=== PATIENT | female | born 1940 | race Caucasian/White ===

== ENCOUNTER → 2017-06-06 | Outpatient (CLI) | payer OTHER | END | disposition home or self-care (01) | LOC: LAB SHORT 10:52 → PLD 10:52 | DX: D22.61 Melanocytic nevi of right upper limb, including shoulder (principal) | CPT/HCPCS: 88305 ==

== ENCOUNTER 2018-09-18 07:36 | Day surgery (SDC) | payer OTHER ==
[~2018-09-18] VITALS: Ht 167.6 cm; Wt 81.5 kg
[~2018-09-18 07:36] MED LIST: ASCO500; Avapro300 MG; CHOL10002; CIME400; Cvs Glucosamin1 EAC2; Lutein6 MG; MELA3; THERA1 EACH; TUMS500 MG; UNISOM25 MG; Vitamin A10000 UNIT; ZINC15
--- NOTE | 2018-09-18 09:55 | NUR ---
09/18/18 0955 Shakira Lowe INDIGO CARMINE WITH NACL, 7ML TOTAL USED FOR POLYP REMOVAL.
== END 2018-09-18 10:26 | disposition home or self-care (01) ==
LOC: ORSCSDS 07:36
PROVIDERS: Internal Medicine Gastroenterology
PROC: 3E0H8GC Introduction of Other Therapeutic Substance into Lower GI, Via Natural or Artificial Opening Endoscopic (ICD-10-PCS; principal; 2018-09-18 09:00)
PROC: 0DBK8ZX Excision of Ascending Colon, Via Natural or Artificial Opening Endoscopic, Diagnostic (ICD-10-PCS; principal; 2018-09-18 09:00)
PROC: 0DBN8ZX Excision of Sigmoid Colon, Via Natural or Artificial Opening Endoscopic, Diagnostic (ICD-10-PCS; principal; 2018-09-18 09:00)
DX: Z12.11 Encounter for screening for malignant neoplasm of colon (principal); Z80.0 Family history of malignant neoplasm of digestive organs; K57.30 Diverticulosis of large intestine without perforation or abscess without bleeding; D12.5 Benign neoplasm of sigmoid colon; D12.2 Benign neoplasm of ascending colon; I10 Essential (primary) hypertension; Z79.82 Long term (current) use of aspirin; G47.33 Obstructive sleep apnea (adult) (pediatric)
CPT/HCPCS: 88305; J0461; J2405; J2704; J7120

== ENCOUNTER → 2018-11-01 | Outpatient (CLI) | payer OTHER ==
[2018-11-06 13:07] LABS: M-SPIKE, % Not Observed % (Not Observed); PROTEIN,TOTAL,URINE 5.7 mg/dL (Not Estab.)
== END | disposition home or self-care (01) ==
LOC: LAB 08:56 → LAB SHORT 08:56 → LAB FUT 10-30 13:30
PROVIDERS: Internal Medicine
DX: Z00.01 Encounter for general adult medical examination with abnormal findings (principal)
CPT/HCPCS: 81050; 84166; 86335

== ENCOUNTER 2021-06-24 08:11 | Day surgery (SDC) | payer OTHER ==
[~2021-06-24] VITALS: Ht 167.6 cm; Wt 85.5 kg
== END 2021-06-24 10:49 | disposition home or self-care (01) ==
LOC: ORSCSDS 08:11
PROVIDERS: Internal Medicine Gastroenterology
PROC: 0DBK8ZX Excision of Ascending Colon, Via Natural or Artificial Opening Endoscopic, Diagnostic (ICD-10-PCS; principal; 2021-06-24 09:30)
DX: Z12.11 Encounter for screening for malignant neoplasm of colon (principal); Z86.010 Personal history of colon polyps; Z80.0 Family history of malignant neoplasm of digestive organs; D12.2 Benign neoplasm of ascending colon; K57.30 Diverticulosis of large intestine without perforation or abscess without bleeding; G47.30 Sleep apnea, unspecified; Z87.891 Personal history of nicotine dependence; E66.9 Obesity, unspecified; Z68.30 Body mass index [BMI] 30.0-30.9, adult; Z79.899 Other long term (current) drug therapy
CPT/HCPCS: 88305; J2704; J7120

== ENCOUNTER 2023-12-17 00:42 | Emergency (ER) | payer OTHER ==
[~2023-12-17] VITALS: Ht 160 cm; Wt 79.4 kg
[~2023-12-17 00:42] MED LIST changes: +AMLODIPINE BES2.5 MG PO; +Avapro300 MG PO; +CATAPRES0.1 MG PO; +CLIMARA1 EACH TOP
[2023-12-17] MEDS ORDERED: METO50ER PO (02:10)
[2023-12-17] MEDS ORDERED: ELIQUIS5 M3 PO (02:10)
[2023-12-17 02:15] LABS: Bun/Creatinine Ratio 22.5 (12.0-20.0); Calcium, Blood 8.9 mg/dL (8.5-10.1); Creatinine, Blood 0.76 mg/dL (0.40-1.00)
[2023-12-17 02:30] VITALS: BP 154/66
== END 2023-12-17 02:45 | disposition home or self-care (01) ==
LOC: ER 00:42
PROVIDERS: Emergency Medicine
DX: I16.0 Hypertensive urgency (principal); I10 Essential (primary) hypertension; Z79.899 Other long term (current) drug therapy
CPT/HCPCS: 80048; 99283

== ENCOUNTER 2024-03-26 12:13 | Emergency (ER) | payer OTHER ==
[~2024-03-26] VITALS: Ht 167.6 cm; Wt 81.7 kg
[~2024-03-26 12:13] MED LIST changes: +ELIQUIS5 M3 PO; +METO50ER PO
[2024-03-26 12:33] VITALS: BP 172/69
[2024-03-26 13:36] LABS: BASOPHILS ABSOLUTE AUTO 0.06 K/mm3 (0.00-0.23); BASOPHILS PERCENT AUTO 1 % (0-2); EOSINOPHILS ABSOLUTE AUTO 0.32 K/mm3 (0.00-0.68); EOSINOPHILS PERCENT AUTO 5 % (0-6); Hematocrit 40.1 % (33.0-51.0); Hemoglobin 13.8 g/dL (11.5-16.0); IMMATURE GRAN ABSOLUTE AUTO 0.01 K/mm3 (0.00-0.10); IMMATURE GRAN PERCENT AUTO 0 % (0-1); LYMPHOCYTES ABSOLUTE AUTO 2.48 K/mm3 (0.84-5.20); LYMPHOCYTES PERCENT AUTO 38 % (21-46); MONOCYTES ABSOLUTE AUTO 0.56 K/mm3 (0.16-1.47); MONOCYTES PERCENT AUTO 9 % (4-13); Mean Corpuscular HGB 32.3 pg (26.0-34.0); Mean Corpuscular HGB Conc 34.4 g/dL (31.5-36.5); Mean Corpuscular Volume 94 fL (80-100); Mean Platelet Volume 10.3 fL (9.1-12.4); NEUTROPHILS ABSOLUTE AUTO 3.07 K/mm3 (1.96-9.15); NEUTROPHILS PERCENT AUTO 47 % (41-73); Platelet Count 141 K/mm3 (150-400); RDW Coefficient Variation 12.1 % (11.7-14.2); RDW Standard Deviation 42.2 fL (35.1-46.3); Red Blood Cell Count 4.27 M/mm3 (3.80-5.20)
[2024-03-26 14:09] LABS: Albumin, Blood 3.6 g/dL (3.4-5.0); Albumin/Globulin Ratio 0.9 (0.8-1.8); Bilirubin, Total 0.6 mg/dL (0.1-1.0); Bun/Creatinine Ratio 30.9 (12.0-20.0); Calcium, Blood 9.5 mg/dL (8.5-10.1); Creatinine, Blood 0.78 mg/dL (0.40-1.00); Globulin, Blood 3.9 g/dL (2.2-4.0); Potassium, Blood 3.8 mmol/L (3.5-5.5); Total Protein, Blood 7.5 g/dL (6.4-8.2)
[2024-03-26] MEDS ORDERED: HYDR1TAB94 PO (15:08)
== END 2024-03-26 15:27 | disposition home or self-care (01) ==
LOC: ER 12:13
PROVIDERS: Student in an Organized Health Care Education/Training Program
DX: M16.11 Unilateral primary osteoarthritis, right hip (principal); I10 Essential (primary) hypertension; Z79.01 Long term (current) use of anticoagulants; Z79.899 Other long term (current) drug therapy
CPT/HCPCS: 73502; 80053; 85025; 99283-25